=== PATIENT | male | born 1975 | race Two or more races ===

== ENCOUNTER 2017-11-26 12:42 | Emergency (ER) | payer OTHER ==
[~2017-11-26] VITALS: Ht 180.3 cm; Wt 91.6 kg
[2017-11-26 12:56] VITALS: BP 160/100
== END 2017-11-26 14:17 | disposition left against medical advice (07) ==
LOC: ER 12:42
DX: M79.602 Pain in left arm (principal); Z53.21 Procedure and treatment not carried out due to patient leaving prior to being seen by health care provider
CPT/HCPCS: 73090